=== PATIENT | male | born 1965 | race Caucasian/White ===

== ENCOUNTER 2021-12-29 19:07 | Emergency (ER) | payer OTHER ==
[~2021-12-29] VITALS: Ht 175.3 cm; Wt 65.8 kg
[2021-12-29] MEDS ORDERED: CYCLOBENZAPRINE10 MG PO (21:32)
[2021-12-29] MEDS ORDERED: CRUTCHES XX (21:36)
== END 2021-12-29 22:07 | disposition home or self-care (01) ==
LOC: ED 19:07
DX: S76.911A Strain of unspecified muscles, fascia and tendons at thigh level, right thigh, initial encounter (principal); W22.8XXA Striking against or struck by other objects, initial encounter
CPT/HCPCS: 73552

== ENCOUNTER 2023-03-09 22:35 | Emergency (ER) | payer OTHER ==
[~2023-03-09] VITALS: Ht 175.3 cm; Wt 74.0 kg
[~2023-03-09 22:35] MED LIST: CRUTCHES XX; CYCLOBENZAPRINE10 MG PO
[2023-03-09] MEDS ORDERED: TRIAMCINOLONE A15 G3 TOP (23:42)
[2023-03-10 00:17] VITALS: BP 130/91
== END 2023-03-10 00:18 | disposition home or self-care (01) ==
LOC: ED 22:35
DX: L30.1 Dyshidrosis [pompholyx] (principal)
CPT/HCPCS: 99282